=== PATIENT | male | born 1955 | race African-American/Black ===

== ENCOUNTER 2023-01-17 11:24 | Emergency (ER) | payer MEDICAID ==
[~2023-01-17] VITALS: Ht 177.8 cm; Wt 76.0 kg
[2023-01-17 11:27] VITALS: BP 147/89
[2023-01-17] MEDS ORDERED: TOPUD PO (12:41)
== END 2023-01-17 13:50 | disposition home or self-care (01) ==
LOC: ER 11:24
DX: S09.90XA Unspecified injury of head, initial encounter (principal); Y04.0XXA Assault by unarmed brawl or fight, initial encounter; Y93.89 Activity, other specified; Y92.89 Other specified places as the place of occurrence of the external cause; Y99.8 Other external cause status
CPT/HCPCS: 99284